=== PATIENT | female | born 1985 | race American Indian/Alaskan Native ===

== ENCOUNTER 2020-09-08 19:52 | Emergency (ER) | payer SELFPAY ==
[2020-09-08 20:43] LABS: Basophils # (Auto) 0.1 K/mm3 (0.0-0.1); Basophils % (Auto) 1.3 % (0.0-1.8); Eosinophils % (Auto) 0.4 % (0.0-4.3); Hematocrit 41.6 % (30.3-42.9); Hemoglobin 14.4 gm/dl (10.1-14.3); Lymphocytes # (Auto) 2.9 K/mm3 (1.2-5.4); Lymphocytes % (Auto) 29.5 % (13.4-35.0); Mean Corpuscular HGB Conc 35 % (30-34); Mean Corpuscular Volume 94 fl (79-97); Monocytes # (Auto) 0.8 K/mm3 (0.0-0.8); Platelet Count 261 K/mm3 (140-440); Red Blood Count 4.45 M/mm3 (3.65-5.03); Red Cell Distribution Width 12.9 % (13.2-15.2)
--- NOTE | 2020-09-08 20:57 | Event Note ---
ED Screening Note ED Screening Note: pts presents for [facility] medical clearance states she uses opiates, heroin, roxicodone, and xanax no SI, no HI generalized body aches, LEAL, diarrhea states she last used yesterday no fever, no vomiting states she has been to a facility previously PMHx none no allergies to meds LNMP: 08/08/2020 This initial assessment/diagnostic orders/clinical plan/treatment(s) is/are subject to change based on patients health status, clinical progression and re- assessment by fellow clinical providers in the ED. Further treatment and workup at subsequent clinical providers discretion. Patient/guardian urged not to elope from the ED as their condition may be serious if not clinically assessed and managed. Initial orders include: medical clearance
[2020-09-08 20:58] VITALS: BP 127/59
[2020-09-08 21:03] LABS: Blood Urea Nitrogen 13 mg/dL (7-17); Calcium 9.2 mg/dL (8.4-10.2); Hemolysis Index 11
[2020-09-08 21:07] LABS: BUN/Creatinine Ratio 22
--- NOTE | 2020-09-08 21:19 | Emergency Department Report ---
ED Medical Clearance HPI - General Chief complaint: Medical Clearance Stated complaint: MEDICAL CLEARANCE Time Seen by Provider: 09/08/20 20:53 Source: patient Mode of arrival: Ambulatory - History of Present Illness Initial comments: Patient is 35-year-old female with history of polysubstance abuse. Patient stated that she has been using Roxicodone, heroine and Xanax. Last use was yesterday. Patient presented to the ER stating that she need medical clearance so she can be checked into [facility]. Patient went to [facility] and asked her to come to the ER for medical clearance. Patient denies any seizure, headache, neck pain, shortness of breath, chest pain or abdominal pain. Patient denies any vomiting but stated that she is slightly nauseated. Denies suicidal or homicidal ideation. No visual or auditory hallucination. MD Complaint: medical clearance request -: days(s) Reason for Medical Clearance: psychiatric condition Allergies/Adverse reactions: Allergies Allergy/AdvReac Type Severity Reaction Status Date / Time No Known Allergies Allergy Unverified 09/08/20 20:18 ED Review of Systems ROS: Stated complaint: MEDICAL CLEARANCE Other details as noted in HPI Comment: All other systems reviewed and negative Constitutional: denies: chills, fever Respiratory: denies: cough, shortness of breath, SOB with exertion Cardiovascular: palpitations. denies: chest pain Gastrointestinal: nausea. denies: abdominal pain, vomiting, diarrhea, constipation, hematemesis, melena, hematochezia ED Physical Exam - General Limitations: No Limitations General appearance: alert, anxious - Head Head exam: Present: atraumatic, normocephalic, normal inspection - Eye Eye exam: Present: normal appearance, PERRL - ENT ENT exam: Present: normal exam, normal orophraynx, mucous membranes moist - Neck Neck exam: Present: normal inspection. Absent: tenderness, meningismus - Respiratory Respiratory exam: Present: normal lung sounds bilaterally - Cardiovascular Cardiovascular Exam: Present: regular rate, normal rhythm, normal heart sounds - GI/Abdominal GI/Abdominal exam: Present: soft, normal bowel sounds. Absent: distended, tenderness, guarding, rebound, rigid, organomegaly, mass, bruit, pulsatile mass, hernia - Extremities Exam Extremities exam: Present: normal inspection, full ROM, normal capillary refill. Absent: pedal edema, calf tenderness - Back Exam Back exam: Present: normal inspection, full ROM. Absent: CVA tenderness (R), CVA tenderness (L) - Neurological Exam Neurological exam: Present: alert, oriented X3, CN II-XII intact, normal gait, reflexes normal. Absent: motor sensory deficit - Psychiatric Psychiatric exam: Present: normal mood, anxious. Absent: depressed, agitated, flat affect, manic, homicidal ideation, suicidal ideation - Skin Skin exam: Present: warm, intact, normal color ED Course Vital Signs 09/08/20 20:13 Temperature 98.5 F Pulse Rate 124 H Respiratory 18 Rate Blood Pressure 127/59 O2 Sat by Pulse 99 Oximetry ED Medical Decision Making - Lab Data Result diagrams: 09/08/20 20:26 09/08/20 20:26 - Medical Decision Making Patient is 35-year-old female with history of polysubstance abuse. Patient stated that she has been using Roxicodone, heroine and Xanax. Last use was yesterday. Patient presented to the ER stating that she need medical clearance so she can be checked into [facility]. Patient went to [facility] and asked her to come to the ER for medical clearance. Patient denies any seizure, headache, neck pain, shortness of breath, chest pain or a bdominal pain. Patient denies any vomiting but stated that she is slightly nauseated. Denies suicidal or homicidal ideation. No visual or auditory hallucination. Labs reviewed and is unremarkable. Patient is medically clear to be admitted to substance abuse rehab. ED Disposition Clinical Impression: Polysubstance abuse Disposition: DC-01 TO HOME OR SELFCARE Is pt being admited?: No Condition: Stable Additional Instructions: Patient is medically cleared to be admitted to a psychiatric facility or substance abuse rehab facility.
[2020-09-08 21:21] LABS: Amphetamine Screen,Urine PRESUMPTIVE POSITIVE; Benzodiazepines Screen,Urine PRESUMPTIVE NEGATIVE; Cannabinoid Screen,Urine PRESUMPTIVE NEGATIVE; Cocaine Screen,Urine PRESUMPTIVE NEGATIVE; Methadone Screen,Urine PRESUMPTIVE NEGATIVE; Opiate Screen,Urine PRESUMPTIVE NEGATIVE
[2020-09-08 21:25] LABS: Bacteria,Urine 3+ /HPF (Negative); Bilirubin,Urine NEG (Negative); Blood,Urine SM (Negative); Color,Urine Yellow (Yellow); Mucus,Urine FEW /HPF; Protein,Urine <15 mg/dL mg/dL (Negative); Urobilinogen,Urine < 2.0 mg/dL (<2.0)
[2020-09-08 22:13] LABS: Alanine Aminotransferase 10 units/L (7-56); Albumin 4.7 g/dL (3.9-5)
[2020-09-08 22:15] LABS: Bilirubin,Direct < 0.2 mg/dL (0-0.2)
== END 2020-09-08 22:28 | disposition home or self-care (01) ==
LOC: ED 19:52
DX: F19.10 Other psychoactive substance abuse, uncomplicated (principal)
CPT/HCPCS: 36415; 80048; 80076; 80307; 80320; 81001; 82550; 84703; 85025; 93005; G0480